=== PATIENT | female | born 1975 | race Two or more races ===

== ENCOUNTER 2018-10-22 08:49 | Inpatient (IN) | payer OTHER ==
[2018-10-22] VITALS (14 sets, daily range): BP systolic 110–129; BP diastolic 58–77
[~2018-10-22] VITALS: Ht 165.1 cm; Wt 74.8 kg
--- NOTE | 2018-10-22 07:46 | Pre-Procedure Note/Attestation ---
Pre-Procedure Note/Attestation Complete Prior to Procedure Planned Procedure: bilateral Procedure Narrative: Revision of anterior cervical hardware with removal from C4-5 level and conversion to instrumented fusion with interbody graft, allograft, autograft and iliac crest bone marrow/cancellous bone Attestation I attest that I discussed the nature of the procedure; its benefits; risks and complications; and alternatives (and the risks and benefits of such alternatives ), prior to the procedure, with the patient (or the patient's legal statement services representative). I attest that, if there was a reasonable possibility of needing a blood transfusion, the patient (or the patient's legal statement services representative) was given the [place] Department of [employer] Services standardized written summary, pursuant to the [place] Blood Safety Act ([place] Health and Safety Code # 1645, as amended). I attest that I re-evaluated the patient just prior to the surgery and that there has been no change in the patient's H&P, except as documented below: Radha Broussard MD Oct 22, 2018 07:46
[~2018-10-22 08:49] MED LIST: Pantoprazole Inj IVP ONE; Vancomycin 1gm/D5W 275ml IVPB ONE
[2018-10-22] MEDS ORDERED: MODAFINIL100 MG ORAL (09:38)
[2018-10-22] MEDS ORDERED: KADIAN20 M1 PO (09:38)
[2018-10-22] MEDS ORDERED: CYMBALTA60 MG ORAL (09:38)
[2018-10-22] MEDS ORDERED: NORCO 10-325 T1 EACH ORAL (09:38)
[2018-10-22] MEDS ORDERED: ROBAXIN500 MG PO (09:38)
[2018-10-22] MEDS ORDERED: Vancomycin 1gm vial IVPB ONE (10:17)
[2018-10-22] MEDS ORDERED: Pantoprazole Inj ONE (10:17)
[2018-10-22] MEDS ORDERED: Bupivacaine w/Epi 0.5% 30ml Vial INJ ONE (10:18)
[2018-10-22] MEDS ORDERED: Zemuron 50mg/5ml Inj IV ONE (10:18)
[2018-10-22] MEDS ORDERED: Gelfoam Absorbable 1gm powder pkt TOPIC ONE (10:19)
[2018-10-22] MEDS ORDERED: Thrombin 5000 units TOPIC ONE ×2 (10:19→10:20)
[2018-10-22] MEDS ORDERED: Thrombin 5000 units spray kit TOPIC ONE (10:19)
[2018-10-22] MEDS ORDERED: Gelfoam Size TOPIC ONE ×2 (10:19→11:16)
[2018-10-22] MEDS ORDERED: Bacitracin 50000 Units Vial ONE (10:37)
[2018-10-22] MEDS ORDERED: Dexamethasone 4mg/ml vial ONE (10:42)
[2018-10-22] MEDS ORDERED: Lidocaine 1% MPF 10mg/ml 5ml ONE (10:42)
[2018-10-22] MEDS ORDERED: Sodium Chloride 10ml vial INJ ONE (10:42)
[2018-10-22] MEDS ORDERED: fentaNYL 100 mcg/2 mL IV ONE ×3 (10:50→12:43)
[2018-10-22] MEDS ORDERED: Ketamine 500mg Inj ONE (10:50)
[2018-10-22] MEDS ORDERED: LR 1000ml ONE (11:00)
[2018-10-22] MEDS ORDERED: Propofol 1,000mg/ 100ml btl IV ONE (11:00)
[2018-10-22] MEDS ORDERED: Sterile Water Irrig 1000ml IRRIG ONE (11:00)
[2018-10-22] MEDS ORDERED: NS Irrig 1000ml ONE (11:00)
[2018-10-22] MEDS ORDERED: LR 1000ml 1,000 ML IVLG SCH (11:06)
--- NOTE | 2018-10-22 11:07 | Anethesia Preoperative Eval ---
Anesthesia Pre-op PMH/ROS General Date of Evaluation: Oct 22, 2018 Time of Evaluation: 10:56 Anesthesiologist: He ASA Score: ASA 2 Mallampati Score Class I : Soft palate, uvula, fauces, pillars visible Class II: Soft palate, uvula, fauces visible Class III: Soft palate, base of uvula visible Class IV: Only hard plate visible Mallampati Classification: Class II Surgeon: Aarti Diagnosis: Neck Pain Surgical Procedure: Redo ACDF C4-5 Anesthesia History: none Social History: drug use - Opioid Tolerant Family History: no anesthesia problems Allergies: Coded Allergies: LATEX (Verified Allergy, Severe, 10/22/18) FACE ITCHING Medications: see eMAR Patient NPO?: Yes NPO Date: Oct 22, 2018 NPO Time: 0200 Past Medical History Neurologic/Psychiatric: Reports: depression/anxiety PSxH Narrative: Cholecystectomy, Lumbar Spine SX, Cervical Spine SX, Abdominoplasty, Bunionectomy Anesthesia Pre-op Phys. Exam Physician Exam Last Vital Signs Date Time Temp Pulse Resp B/P (MAP) Pulse Ox O2 Delivery O2 Flow Rate FiO2 10/22/18 09:39 Room Air 10/22/18 09:22 97.2 56 20 110/58 (75) 99 Constitutional: NAD Neurologic: CN 2-12 intact Cardiovascular: RRR Respiratory: CTA Gastrointestinal: S/NT/ND Airway Exam Mallampati Score: Class II MO: full ROM: limited Teeth: missing, intact Anesthesia Pre-op A/P Labs Urine Test Test 10/22/18 09:00 Urine HCG, Qualitative Negative (NEGATIVE) Risk Assessment & Plan Assessment: ASA 2 Plan: GA, SED, GlideScope Go Status Change Before Surgery: No Pre-Antibiotics Dru Gram Ancef IV Given Within 1 Hr of Incision: Yes Time Given: 11:16 Lyle Cutler MD Oct 22, 2018 11:07
[2018-10-22] MEDS ORDERED: Lidocaine 1% Plain 30 ml INJ ONE ×2 (11:08→12:40)
[2018-10-22] MEDS ORDERED: Midazolam 2mg/2ml Inj IVP PRN (11:15)
[2018-10-22] MEDS ORDERED: Atropine Sulfate 0.4mg/ml inj IVP PRN (11:15)
[2018-10-22] MEDS ORDERED: Hydromorphone 0.5mg/0.5ml inj IVP PRN (11:15)
[2018-10-22] MEDS ORDERED: Ketorolac 30mg Inj IV PRN ×2 (11:15)
[2018-10-22] MEDS ORDERED: Meperidine 50mg/ml Inj(FOR RIGORS ONLY) IVP PRN (11:15)
[2018-10-22] MEDS ORDERED: Metoclopramide 10mg/2ml Inj IVP PRN (11:15)
[2018-10-22] MEDS ORDERED: DiphenhydrAMINE 50mg/ml Inj IVP PRN (11:15)
[2018-10-22] MEDS ORDERED: HYDROcodone/Acetamin 5/325 tab ORAL PRN (11:15)
[2018-10-22] MEDS ORDERED: oxyCODONE HCL/Acetaminophen 5/325mg ORAL PRN (11:15)
[2018-10-22] MEDS ORDERED: HYDROcodone/Acetamin 7.5/325 tab ORAL PRN ×2 (11:15→14:30)
[2018-10-22] MEDS ORDERED: LORazepam Inj 2mg/ml 1ml IV PRN (11:15)
[2018-10-22] MEDS ORDERED: fentaNYL 100 mcg/2 mL IV PRN (11:15)
[2018-10-22] MEDS ORDERED: Acetaminophen (Non formulary) 100 ML IV ONE ×2 (11:15→18:00)
[2018-10-22] MEDS ORDERED: NS Irrig 1000ml IRRIG ONE ×2 (11:16→12:07)
[2018-10-22] MEDS ORDERED: Heparin 1000 units/ml 1ml Vial ONE (11:31)
--- NOTE | 2018-10-22 11:53 | Immediate Post-Op Evaluation ---
Immediate Post-Op Evalulation Immediate Post-Op Evalulation Procedure: Redo ACDF C4-5 Date of Evaluation: Oct 22, 2018 Time of Evaluation: 14:18 IV Fluids: 900 LR Blood Products: 0 Estimated Blood Loss: 30 Urinary Output: 650 Blood Pressure Systolic: 123 Blood Pressure Diastolic: 70 Pulse Rate: 78 Respiratory Rate: 16 O2 Sat by Pulse Oximetry: 100 Temperature (Fahrenheit): 97.1 Pain Score (1-10): 3 Nausea: No Vomiting: No Complications 0 Patient Status: awake, reacts, patent, extubated, none Hydration Status: adequate Dru Gram Vancomycin IV Given Within 1 Hr of Incision: Yes Time Given: 11:16 Lyle Cutler MD Oct 22, 2018 11:53
[2018-10-22] MEDS ORDERED: Glycopyrrolate 0.2mg/ml 1ml Vial ONE (13:12)
--- NOTE | 2018-10-22 14:20 | General Progress Note ---
Progress Note Progress Note Neurosurgery Post-op S/ Comfortable O/ VS: Last 24 Hour Vital Signs Date Time Temp Pulse Resp B/P (MAP) Pulse Ox O2 Delivery O2 Flow Rate FiO2 10/22/18 14:07 78 16 100 10/22/18 09:39 Room Air 10/22/18 09:22 97.2 56 20 110/58 (75) 99 Alert and follwoing commands Moves all extremities well dressing dry doing well admit after cleared by PACU Radha Broussard MD Oct 22, 2018 14:20
[2018-10-22] MEDS ORDERED: HYDROmorphone 1mg/ml Carpuject IVP PRN (14:30)
[2018-10-22] MEDS ORDERED: Milk of Magnesia 30ml Ud ORAL PRN (14:30)
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
--- NOTE | 2018-10-22 15:45 | NUR ---
NURSE NOTES: Received report from Tawnya GRAHAM, pt a/a/o x4 laying in bed with no signs of distress or other issues at this time. dressing dry and intact, pt is wearing a soft cervical collar. Atlas Guides also delivered hard aspen collar. per report pt's Whitlock cath was removed prior to send pt to the floor, total urine removed prior 660ml pt was able to void after removal of Whitlock cath. IV on the Right arm gauge#20 running LR, RN will change fluids as ordered by MD. RN will check orders and will carry on as indicated by MD. mother at bedside. I will f/u as needed.
[2018-10-22] MEDS ORDERED: NS w/KCl 20mEq 1,000 ML IV SCH (18:00)
[2018-10-22] MEDS ORDERED: Docusate 100mg cap ORAL SCH (18:00)
[2018-10-22] MEDS ORDERED: Docusate Sod/Senna tab ORAL SCH (18:00)
--- NOTE | 2018-10-22 20:09 | NUR ---
NURSE NOTES: pt stated that wants to go home. RN called Dr. Broussard to ask if patient is able to go home since she is able to tolerate diet, and she is able to ambulate around the unit with steady gait. per Dr. Broussard ok to d/c after Vanco is given. RN also given pt's pharmacy phone number so he can call in for RX. Anju Kelly phone: [phone] fax: [phone]
--- NOTE | 2018-10-22 20:26 | NUR ---
NURSE NOTES: Received order for discharge. discharge instructions and belongings given to patient and pt's family. they are also aware that Dr. Broussard will call her pharmacy for her medication. Alice GRAHAM and Stanislav HEREDIA are aware and will remove IV once pt's finishes IV Vanco. pt in stable condition. I will f/u as needed.
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
[2018-10-22] MEDS ORDERED: Vancomycin 1 GM in D5W 275 ML IVPB SCH (21:00)
--- NOTE | 2018-10-22 21:12 | NUR ---
NURSE NOTES: Patient discharged home accompanied by family. Neck collar applied to patient. IV is discontinued. Discharge instructions given to patient and family by AM shift. MD's phone number provided to family and patient. Needs attended. Patient in stable condition. Seen by Dr. Daley on the way to the vehicle. RN Accompanied to vehicle via wheelchair. Remained free from injury.
--- NOTE | 2018-10-22 21:14 | Consultation ---
History of Present Illness General Date patient seen: Oct 22, 2018 Time patient seen: 20:45 Present Illness Allergies: Coded Allergies: LATEX (Verified Allergy, Severe, 10/22/18) FACE ITCHING Medication History Scheduled Duloxetine Hcl* (Cymbalta*), 120 MG ORAL DAILY, (Reported) Methocarbamol* (Robaxin*), 250 MG PO NEEDED, (Reported) Modafinil* (Provigil), 200 MG ORAL DAILY, (Reported) Morphine Sulfate (Umu), 15 MG PO TID, (Reported) Scheduled PRN Hydrocodone Bit/Acetaminophen 10-325* (Boyd 10-325*), 1 TAB ORAL Q6H PRN for For Pain, (Reported) Patient History Healthcare decision maker CHRISTIANNE BENTLEY - SISTER Resuscitation status Full Code Advanced Directive on File Review of Systems Constitutional: Reports: no symptoms Eye: Reports: no symptoms Physical Exam General Appearance: WD/WN HEENT: normocephalic Neck: other - no drainge formthe neck has hard cervical collar Respiratory/Chest: lungs clear Extremities: other - no edema Last 24 Hour Vital Signs Date Time Temp Pulse Resp B/P (MAP) Pulse Ox O2 Delivery O2 Flow Rate FiO2 10/22/18 20:00 97.5 75 18 122/74 (90) 98 10/22/18 18:32 97.0 10/22/18 18:31 97.5 10/22/18 18:30 98.4 69 18 120/70 (87) 98 10/22/18 18:01 97.0 10/22/18 17:30 98.1 60 17 110/67 (81) 98 10/22/18 16:30 98.3 60 18 112/67 (82) 98 10/22/18 16:00 97.0 66 18 124/77 (93) 98 10/22/18 15:30 97.5 60 18 125/77 (93) 100 10/22/18 15:15 97.8 61 18 129/64 100 Nasal Cannula 3 10/22/18 15:00 62 14 123/69 100 Nasal Cannula 3 10/22/18 14:45 59 17 117/68 100 Nasal Cannula 3 10/22/18 14:30 57 14 119/58 100 Nasal Cannula 3 10/22/18 14:20 67 15 120/70 100 Simple Mask 6 10/22/18 14:15 73 17 117/64 100 Simple Mask 6 10/22/18 14:07 97.1 74 16 123/70 100 Simple Mask 6 10/22/18 14:07 78 16 100 10/22/18 09:39 Room Air 10/22/18 09:22 97.2 56 20 110/58 (75) 99 Laboratory Tests Test 10/22/18 09:00 Urine HCG, Qualitative Negative (NEGATIVE) Height (Feet): 5 Height (Inches): 5.00 Weight (Pounds): 165 Medications Current Medications Medications (Trade) Dose Ordered Sig/Cecilio Route PRN Reason Start Time Stop Time Status Last Admin Dose Admin Acetaminophen/ Hydrocodone Bitart (Boyd 7.5/325) 2 tab Q3H PRN ORAL pain scale 7-10 10/22/18 14:30 10/29/18 14:29 Carisoprodol (Soma) 350 mg THREE TIMES A DAY ORAL 10/22/18 18:00 11/21/18 17:59 10/22/18 18:02 Docusate Sodium (Colace) 100 mg TWICE A DAY ORAL 10/22/18 18:00 11/21/18 17:59 10/22/18 18:02 Duloxetine HCl (Cymbalta) 60 mg DAILY ORAL 10/23/18 09:00 11/22/18 08:59 Hydromorphone HCl (Dilaudid) 1 mg Q2H PRN IVP Breakthrough Pain 10/22/18 14:30 10/29/18 14:29 Magnesium Hydroxide (Mom) 30 ml QIDPRN PRN ORAL Constipation 10/22/18 14:30 11/21/18 14:29 Modafinil (Provigil) 200 mg DAILY ORAL 10/23/18 09:00 10/30/18 08:59 Ondansetron HCl (Zofran) 4 mg Q6H PRN IVP Nausea & Vomiting 10/22/18 14:30 11/21/18 14:29 Senna/Docusate Sodium (Luz Elena-Colace) 1 tab TWICE A DAY ORAL 10/22/18 18:00 11/21/18 17:59 10/22/18 18:02 Sodium Chloride 1,000 ml @ 75 mls/hr [id number] IV 10/22/18 18:00 11/21/18 17:59 10/22/18 18:55 Sodium Chloride 1,000 ml @ 100 mls/hr Q10H IV 10/22/18 06:00 11/21/18 05:59 Vancomycin HCl 1 gm/Dextrose 275 ml @ 183.3 mls/ hr EVERY 12 HOURS IVPB 10/22/18 21:00 10/23/18 10:31 10/22/18 18:55 Assessment/Plan Status Narrative s.p revision cervical spioe surgery perioperative antibiotic prophylaixs given pain control d home followupwith Brent Funez MD Oct 22, 2018 21:14
[2018-10-23 07:54] VITALS: BP 128/67
--- NOTE | 2018-10-23 07:54 | 48 Hour Post Anesthesia Eval ---
Post Anesthesia Evaluation Procedure: Redo ACDF C4-5 Date of Evaluation: Oct 23, 2018 Time of Evaluation: 07:53 Blood Pressure Systolic: 128 0: 67 Pulse Rate: 62 Respiratory Rate: 18 Temperature (Fahrenheit): 97.6 O2 Sat by Pulse Oximetry: 98 Airway: patent Nausea: No Vomiting: No Pain Intensity: 2 Hydration Status: adequate Cardiopulmonary Status: stable Mental Status/LOC: patient returned to baseline Follow-up Care/Observations: n/a Post-Anesthesia Complications: none Follow-up care needed: ready to discharge Luciano Park MD Oct 23, 2018 07:54
[2018-10-23] MEDS ORDERED: Modafinil 100mg tab ORAL SCH (09:00)
[2018-10-23] MEDS ORDERED: DULoxetine 30mg cap ORAL SCH (09:00)
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
== END 2018-10-22 21:17 | disposition home or self-care (01) | DRG 473 ==
LOC: SDSOVERFLO 08:49 → 3E 15:30
PROC: 0QB23ZZ Excision of Right Pelvic Bone, Percutaneous Approach (ICD-10-PCS; 2018-10-22)
PROC: 0RG10A0 Fusion of Cervical Vertebral Joint with Interbody Fusion Device, Anterior Approach, Anterior Column, Open Approach (ICD-10-PCS; 2018-10-22)
PROC: 0RP30JZ Removal of Synthetic Substitute from Cervical Vertebral Disc, Open Approach (ICD-10-PCS; principal; 2018-10-22 11:00)
DX: M50.121 Cervical disc disorder at C4-C5 level with radiculopathy (principal); V23.9 Unspecified motorcycle rider injured in collision with car, pick-up truck or van in traffic accident; M25.50 Pain in unspecified joint; Z86.14 Personal history of Methicillin resistant Staphylococcus aureus infection; Z87.820 Personal history of traumatic brain injury
CPT/HCPCS: 36415; 81025; 86850; 86900; 86901; 87081; 94003; 94150; C9399; J2405